=== PATIENT | male | born 1965 | race Caucasian/White ===

== ENCOUNTER 2021-05-25 10:32 | Outpatient (CLI) | payer MEDICARE | END 2021-05-25 10:33 | disposition home or self-care (01) | LOC: CSHRAD 10:32 | PROVIDERS: ATTEND Family Medicine | DX: I50.9 Heart failure, unspecified (principal); S22.20XA Unspecified fracture of sternum, initial encounter for closed fracture; M79.671 Pain in right foot; R60.9 Edema, unspecified; D50.9 Iron deficiency anemia, unspecified | CPT/HCPCS: 36415; 71046; 80048; 83540; 83880; 85025; 85379 ==

== ENCOUNTER 2023-12-31 07:54 | Outpatient (CLI) | payer OTHER ==
[2023-12-31] MEDS ORDERED: Iopamidol 300 61% 100 ML VIAL FS ONE (09:37)
== END 2023-12-31 07:55 | disposition home or self-care (01) ==
LOC: CSHCT 07:54
PROVIDERS: ATTEND Urology
DX: R97.20 Elevated prostate specific antigen [PSA] (principal); N40.1 Benign prostatic hyperplasia with lower urinary tract symptoms; E27.8 Other specified disorders of adrenal gland; Z79.01 Long term (current) use of anticoagulants
CPT/HCPCS: 74178

== ENCOUNTER 2024-01-01 09:00 | Outpatient (CLI) | payer OTHER | END 2024-01-01 09:01 | disposition home or self-care (01) | LOC: CSHRAD 09:00 | PROVIDERS: ATTEND Family Medicine | DX: M54.2 Cervicalgia (principal); G89.29 Other chronic pain; M25.552 Pain in left hip; M70.21 Olecranon bursitis, right elbow; M62.838 Other muscle spasm; F17.210 Nicotine dependence, cigarettes, uncomplicated; Z85.038 Personal history of other malignant neoplasm of large intestine; Z85.048 Personal history of other malignant neoplasm of rectum, rectosigmoid junction, and anus | CPT/HCPCS: 82565 ==